=== PATIENT | female | born 1995 | race Caucasian/White ===

== ENCOUNTER 2017-03-07 23:13 | Emergency (ER) | payer MEDICAID ==
[2017-03-08 02:19] VITALS: BP 123/91
== END 2017-03-08 02:20 | disposition home or self-care (01) ==
LOC: ED 23:13
DX: N93.8 Other specified abnormal uterine and vaginal bleeding (principal); N76.0 Acute vaginitis; N72 Inflammatory disease of cervix uteri
CPT/HCPCS: 87491; 87591; J0696; J1885

== ENCOUNTER 2017-05-13 17:26 | Emergency (ER) | payer MEDICAID ==
[2017-05-13 18:39] LABS: CALCIUM 9.3 mg/dL (8.5-10.1); CARBON DIOXIDE 25.3 mmol/L (21-32); CHLORIDE SERUM 105 mmol/L (98-107); CREATININE SERUM 0.6 mg/dL (0.6-1.0); GFR1 > 60 mL/min; GLUCOSE SERUM 87 mg/dL (74-106); POTASSIUM SERUM 3.9 mmol/L (3.5-5.1); SODIUM SERUM 139 mmol/L (136-145)
[2017-05-13 18:41] LABS: BASOPHIL % 0.5 % (0-2); PLATELET COUNT 324 x10^3mcL (130-400)
[2017-05-13 18:44] LABS: ALBUMIN 3.6 g/dL (3.4-5.0); ALKALINE PHOSPHATASE 81 U/L (46-116); ALT/SGPT 39 U/L (14-59); AST/SGOT 92 U/L (15-37); BILIRUBIN TOTAL 0.32 mg/dL (0.20-1.00); LIPASE 126 IU/L (73-393)
[2017-05-13 18:45] LABS: TOTAL PROTEIN, SERUM 8.4 g/dL (6.4-8.2)
[2017-05-13 18:54] LABS: RED CELL DISTRIBUTION WIDTH 15.9 % (11.5-14.5)
[2017-05-13 20:00] VITALS: BP 125/71
== END 2017-05-13 21:12 | disposition home or self-care (01) ==
LOC: ED 17:26
PROVIDERS: Emergency Medicine
DX: R10.13 Epigastric pain (principal); G43.909 Migraine, unspecified, not intractable, without status migrainosus; Z79.899 Other long term (current) drug therapy
CPT/HCPCS: J1885; J3010; Q0092

== ENCOUNTER 2017-07-17 20:03 | Emergency (ER) | payer MEDICAID ==
[2017-07-18 00:10] VITALS: BP 143/89
== END 2017-07-18 00:10 | disposition home or self-care (01) ==
LOC: ED 20:03
DX: G43.909 Migraine, unspecified, not intractable, without status migrainosus (principal); R06.00 Dyspnea, unspecified; Z88.8 Allergy status to other drugs, medicaments and biological substances

== ENCOUNTER 2020-01-17 21:53 | Emergency (ER) | payer MEDICAID ==
[~2020-01-17] VITALS: Ht 160 cm; Wt 105.7 kg
[2020-01-17 23:35] VITALS: BP 145/97
== END 2020-01-17 23:35 | disposition home or self-care (01) ==
LOC: ED 21:53
DX: L25.9 Unspecified contact dermatitis, unspecified cause (principal); Z88.8 Allergy status to other drugs, medicaments and biological substances; G43.909 Migraine, unspecified, not intractable, without status migrainosus
CPT/HCPCS: J7512

== ENCOUNTER 2020-07-07 23:56 | Emergency (ER) | payer MEDICAID ==
[~2020-07-07] VITALS: Ht 160 cm; Wt 106.4 kg
[2020-07-08 00:05] VITALS: Ht 160 cm; Wt 106.4 kg
[2020-07-08 03:09] LABS: BASOPHIL % 1.2 % (0-2); PLATELET COUNT 375 x10^3mcL (130-400); RED CELL DISTRIBUTION WIDTH 13.5 % (11.5-14.5)
[2020-07-08 03:16] LABS: CALCIUM 9.1 mg/dL (8.5-10.1); CARBON DIOXIDE 23.4 mmol/L (21-32); CHLORIDE SERUM 100 mmol/L (98-107); CREATININE SERUM 0.7 mg/dL (0.6-1.0); GFR1 > 60 mL/min; GLUCOSE SERUM 93 mg/dL (74-106); POTASSIUM SERUM 3.3 mmol/L (3.5-5.1); SODIUM SERUM 132 mmol/L (136-145)
[2020-07-08 03:21] LABS: ALBUMIN 3.7 g/dL (3.4-5.0); ALKALINE PHOSPHATASE 113 U/L (46-116); ALT/SGPT 37 U/L (14-59); AST/SGOT 18 U/L (15-37); BILIRUBIN TOTAL 0.29 mg/dL (0.20-1.00); TOTAL PROTEIN, SERUM 8.2 g/dL (6.4-8.2)
[2020-07-08 04:40] VITALS: BP 118/64
== END 2020-07-08 04:40 | disposition home or self-care (01) ==
LOC: ED 23:56
PROVIDERS: Emergency Medicine
DX: R53.1 Weakness (principal); R42 Dizziness and giddiness; G43.909 Migraine, unspecified, not intractable, without status migrainosus; Z88.8 Allergy status to other drugs, medicaments and biological substances
CPT/HCPCS: J7030; Q0092